=== PATIENT | female | born 1995 | race African-American/Black ===

== ENCOUNTER 2017-01-06 20:07 | Emergency (ER) | payer OTHER ==
[2017-01-06 20:23] VITALS: BP 127/71
[2017-01-06] MEDS ORDERED: Fluconazole 150 MG (NF) 150 MG TAB PO ONE (21:18)
[2017-01-06] MEDS ORDERED: metroNIDAZOLE TAB* 250 MG PO ONE (21:19)
--- NOTE | 2017-01-06 21:41 | UC ---
Complaint Female HPI - HPI Summary HPI Summary: PATIENT IS DIABETIC, HAS HAD PROBLEMS WITH DRYNESS MALODOROUS DISCHARGE AND IRRITATION. CONCERN FOR BV OR YEAST INFECTION. NO FEVER. NO ABDOMINAL PAIN. CONCERN HAS BEEN GOING ON FOR TWO MONTHS, SYMPTOMS RESOLVED AND THEN RETURNED IN LAST FEW DAYS. - History Of Current Complaint Chief Complaint: UCGU Stated Complaint: POSSIBLE YEAST INFECTION Time Seen by Provider: 01/06/17 20:17 Hx Obtained From: Patient Hx Last Menstrual Period: 12/18/16 Onset/Duration: Gradual Onset, Lasting Weeks Timing: Intermittent Severity Initially: Mild Severity Currently: Mild Character: Dull, Burning Aggravating Factor(s): Urination Associated Signs And Symptoms: Positive: Vaginal Discharge. Negative: Fever, Back Pain, Vaginal Bleeding/Discharge, Nausea, Vomiting(# Of Episodes =), Genital Swelling, Genital Blisters - Risk Factors Ectopic Risk Factor: Negative Ovarian Torsion Risk Factor: Negative - Allergies/Home Medications Allergies/Adverse Reactions: Allergies Allergy/AdvReac Type Severity Reaction Status Date / Time Ibuprofen [From Motrin] Allergy Bleeding Verified 01/06/17 20:22 Home Medications: Home Medications metFORMIN* [Glucophage 500 MG TAB *] 2,000 mg PO DAILY 01/06/17 [History Confirmed 01/06/17] PMH/Surg Hx/FS Hx/Imm Hx Previously Healthy: Yes - Surgical History Surgical History: Yes Surgery Procedure, Year, and Place: FINGER SURGERY - Family History Known Family History: Positive: None, Diabetes - mother Negative: Cardiac Disease, Hypertension - Social History Occupation: Employed Full-time, Student Lives: With Family Alcohol Use: None Substance Use Type: None Smoking Status (MU): Never Smoked Tobacco - Immunization History Vaccination Up to Date: Yes Review of Systems Constitutional: Negative Skin: Negative Eyes: Negative ENT: Negative Respiratory: Negative Cardiovascular: Negative Gastrointestinal: Negative Genitourinary: Vaginal/Penile Discharge Motor: Negative Neurovascular: Negative Musculoskeletal: Negative Neurological: Negative Psychological: Negative Is Patient Immunocompromised?: No All Other Systems Reviewed And Are Negative: Yes Physical Exam Triage Information Reviewed: Yes Appearance: Well-Appearing, No Pain Distress, Well-Nourished Vital Signs: Initial Vital Signs Temp 97.1 F 01/06/17 20:19 Pulse 75 01/06/17 20:19 Resp 16 01/06/17 20:19 BP 127/71 01/06/17 20:19 Pulse Ox 100 01/06/17 20:19 Vital Signs Reviewed: Yes Eye Exam: Normal ENT Exam: Normal ENT: Positive: Normal ENT inspection, Hearing grossly normal, TMs normal Dental Exam: Normal Neck exam: Normal Neck: Positive: Supple, Nontender Respiratory Exam: Normal Respiratory: Positive: Chest non-tender, Lungs clear, Normal breath sounds, No respiratory distress, No accessory muscle use Cardiovascular Exam: Normal Cardiovascular: Positive: RRR, No Murmur, Pulses Normal, Brisk Capillary Refill Abdominal Exam: Normal Abdomen Description: Positive: Nontender, No Organomegaly, Soft. Negative: CVA Tenderness (R), CVA Tenderness (L) Musculoskeletal Exam: Normal Neurological Exam: Normal Psychological Exam: Normal Skin Exam: Normal - Additional Comments PELVIC EXAM PERFORMED, THIN WHITE DISCHARGE IN VAGINAL VAULT. NO LESIONS TO EXTERNAL GENITALIA. NO CERVICAL TENDERNESS. PATEINT TOLERATED PROCEDURE WELL. Complaint Female Dx - Differential Dx/Diagnosis Differential Diagnosis/HQI/PQRI: Cervicitis, Sexually Transmitted Disease, Urinary Tract Infection Provider Diagnoses: DIABETES, VULVOVAGINAL CANDIDIASIS; BACTERIAL VAGINOSIS Discharge - Discharge Plan Condition: Stable Disposition: HOME Prescriptions: Fluconazole [Fluconazole 150 mg tab] 150 mg PO ONCE #1 tab Metronidazole [Flagyl 500 MG TAB] 500 mg PO BID #14 tab Patient Education Materials: Bacterial Vaginosis (ED), Vulvovaginal Candidiasis (ED) Referrals: Emely Medrano MD [Primary Care Provider] -
== END 2017-01-06 21:55 | disposition home or self-care (01) ==
LOC: UCEAST 20:07
DX: B37.3 Candidiasis of vulva and vagina (principal); N76.0 Acute vaginitis; E11.9 Type 2 diabetes mellitus without complications
CPT/HCPCS: 81003; 81025; 87480; 87491; 87510; 87591; 87660; 99213; A9270-GY; G0463

== ENCOUNTER 2017-05-17 16:37 | Emergency (ER) | payer MEDICAID, OTHER ==
[2017-05-17 17:13] VITALS: BP 117/70
[2017-05-17] MEDS ORDERED: Sulfamethox/Trimethoprim DS 800/160* TAB PO ONE ×2 (18:04→18:05)
[2017-05-17] MEDS ORDERED: Fluconazole 100 MG TAB* TAB PO ONE (18:05)
--- NOTE | 2017-05-17 18:14 | UC ---
Isidra Ni Jason, scribed for Davon Landeros MD on 05/17/17 at 1808 . Complaint Female HPI - HPI Summary HPI Summary: This patient is a 21 year old F presenting to [facility] with a chief complaint of urinary pain since 2 days ago. The patient states she has had a few UTIs and is diabetic, and is currently experiencing urinary sx. The patient rates the pain 5 /10 in severity. Symptoms aggravated by nothing. Symptoms alleviated by nothing. Patient reports dysuria, hematuria, excruciating bladder pain, and increased frequency of urination. Patient denies sore throat. - History Of Current Complaint Chief Complaint: UCGU Stated Complaint: URINARY FREQUENCY Time Seen by Provider: 05/17/17 17:39 Hx Obtained From: Patient Hx Last Menstrual Period: 2 WEEKS Onset/Duration: Gradual Onset, Lasting Days - 2 sayd, Still Present Timing: Constant Pain Intensity: 5 Pain Scale Used: 0-10 Numeric Aggravating Factor(s): Nothing Alleviating Factor(s): Nothing Associated Signs And Symptoms: Positive: Negative - Allergies/Home Medications Allergies/Adverse Reactions: Allergies Allergy/AdvReac Type Severity Reaction Status Date / Time ibuprofen Allergy diabetic Verified 05/17/17 17:14 PMH/Surg Hx/FS Hx/Imm Hx Previously Healthy: No Endocrine History: Diabetes - Surgical History Surgical History: Yes Surgery Procedure, Year, and Place: FINGER SURGERY - Family History Known Family History: Positive: Diabetes - mother Negative: Cardiac Disease, Hypertension - Social History Alcohol Use: Rare Substance Use Type: None Smoking Status (MU): Never Smoked Tobacco - Immunization History Vaccination Up to Date: Yes Review of Systems ENT: Negative - sore throat Genitourinary: Dysuria, Hematuria, Frequency - increased, Other - bladder pain All Other Systems Reviewed And Are Negative: Yes Physical Exam - Summary Physical Exam Summary: General: well-appearing, no pain distress Skin: warm, color reflects adequate perfusion, dry Head: normal Eyes: EOMI, MARIE ENT: normal Neck: supple, nontender Respiratory: CTA, breath sounds present Cardiovascular: RRR Abdomen: soft, nontender Bowel: present Musculoskeletal: normal, strength/ROM intact Neurological: normal, sensory/motor intact, A&O x3 Psychological: affect/mood appropriate Triage Information Reviewed: Yes Vital Signs: Initial Vital Signs Temp 98.7 F 05/17/17 17:05 Pulse 83 02/25/18 17:05 Resp 16 05/17/17 17:05 BP 117/70 05/17/17 17:05 Pulse Ox 100 05/17/17 17:05 Vital Signs Reviewed: Yes Complaint Female Dx - Course Course Of Treatment: DUE TO SX, WILL TREAT WITH ABX AND DIFLUCAN. URINE CX SENT. UA RESULTS DISCUSSED WITH PATIENT. SHE DENIES C/O STI. F/U PMD; GET RECHECKED IF NOT IMPROVED. - Differential Dx/Diagnosis Provider Diagnoses: DYSURIA Discharge - Discharge Plan Condition: Stable Disposition: HOME Prescriptions: Fluconazole [Diflucan 150 MG (NF)] 150 mg PO ONCE #1 tab Sulfamethox/Trimethoprim DS* [Bactrim DS 800/160 TAB*] 1 tab PO BID #18 tab Patient Education Materials: Urinary Tract Infection in Women (ED) Referrals: Emely Medrano MD [Primary Care Provider] - Additional Instructions: FOLLOW UP WITH YOUR DOCTOR. GET RECHECKED FOR ANY WORSENING OF YOUR CONDITION OR QUESTIONS OR CONCERNS. The documentation as recorded by the Isidra malloy Jason accurately reflects the service I personally performed and the decisions made by me, Davon Landeros MD.
== END 2017-05-17 18:26 | disposition home or self-care (01) ==
LOC: UCEAST 16:37
DX: R30.0 Dysuria (principal); R31.9 Hematuria, unspecified; R35.0 Frequency of micturition; Z87.440 Personal history of urinary (tract) infections; E11.9 Type 2 diabetes mellitus without complications; Z79.4 Long term (current) use of insulin; Z79.84 Long term (current) use of oral hypoglycemic drugs; Z88.6 Allergy status to analgesic agent
CPT/HCPCS: 81003; 87086; 99213; A9270-GY; G0463